=== PATIENT | female | born 1960 | race Caucasian/White ===

== ENCOUNTER 2021-08-15 19:45 | Emergency (ER) | payer OTHER ==
[2021-08-15 20:25] VITALS: BP 158/74; PULSE 88; RESP 17; TEMP 98.3
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
[2021-08-15 22:13] LABS: Basophils # (A) 0.1 k/uL (0-0.2); Basophils % (A) 1 %; Eosinophils # (A) 0.2 k/uL (0-0.7); Eosinophils % (A) 2 %; HCT 45.8 % (34.0-46.0); Lymphocytes # (A) 1.7 k/uL (1.0-4.8); Lymphocytes % (A) 19 %; MCH 29.4 pg (25.0-35.0); MCHC 32.9 g/dL (31.0-37.0); MCV 89.3 fL (80.0-100.0); Mean Platelet Volume 7.6; Monocytes # (A) 0.4 k/uL (0-1.0); Monocytes % (A) 4 %; Neutrophils # (A) 6.5 k/uL (1.3-7.7); Neutrophils % (A) 73 %; Platelet Count 341 k/uL (150-450); RBC 5.12 m/uL (3.80-5.40); RDW 13.2 % (11.5-15.5); WBC 8.9 k/uL (3.8-10.6)
[2021-08-15 22:22] LABS: ALT 36 U/L (4-34); AST 47 U/L (14-36); African American GFR (CKD) >90 (>60 ml/min/1.73 sqM); Albumin 4.2 g/dL (3.5-5.0); Alcohol <10 mg/dL; Alkaline Phosphatase 112 U/L (38-126); Anion Gap 10 mmol/L; Blood Urea Nitrogen 15 mg/dL (7-17); Calcium 9.6 mg/dL (8.4-10.2); Carbon Dioxide 20 mmol/L (22-30); Chloride 105 mmol/L (98-107); Glucose 96 mg/dL (74-99); Non-African American GFR(CKD) >90 (>60 ml/min/1.73 sqM); Potassium 4.6 mmol/L (3.5-5.1); Sodium 135 mmol/L (137-145); Total Bilirubin 1.3 mg/dL (0.2-1.3); Total Protein 6.8 g/dL (6.3-8.2)
== END 2021-08-16 02:20 | disposition home or self-care (01) ==
LOC: EC 19:45
DX: F43.20 Adjustment disorder, unspecified (principal); Z88.5 Allergy status to narcotic agent
CPT/HCPCS: 36415; 80053; 80320; 82075; 84443; 85025; 99284

== ENCOUNTER 2021-08-20 20:44 | Inpatient (IN) | payer MEDICAID, OTHER ==
--- NOTE | 2021-08-20 22:20 | ED ---
Psych HPI - General Chief Complaint: Psychiatric Symptoms Stated Complaint: Mental Health Time Seen by Provider: 08/20/21 21:56 Source: patient, police Mode of arrival: ambulatory - Related Data Home Medications Medication Instructions Recorded Confirmed No Known Home Medications 08/15/21 08/20/21 Allergies Allergy/AdvReac Type Severity Reaction Status Date / Time codeine Allergy Rash/Hives Verified 08/20/21 22:53 Review of Systems ROS Statement: Those systems with pertinent positive or pertinent negative responses have been documented in the HPI. ROS Other: All systems not noted in ROS Statement are negative. Past Medical History Past Medical History: Unable to Obtain History of Any Multi-Drug Resistant Organisms: Unobtainable Past Surgical History: Unable to Obtain Past Psychological History: Unable to Obtain Smoking Status: Unknown if ever smoked Past Alcohol Use History: Unable to Obtain Past Drug Use History: Unable to Obtain General Exam Limitations: altered mental status Course Vital Signs 08/20/21 21:47 Temperature 97.3 F L Pulse Rate 100 Respiratory 18 Rate Blood Pressure 125/79 O2 Sat by Pulse 95 Oximetry Medical Decision Making - Lab Data Lab Results 08/20/21 Range/Units 22:22 Urine Color Yellow Urine Appearance Clear (Clear) Urine pH 5.5 (5.0-8.0) Ur Specific [place] 1.020 (1.001-1.035) Urine Protein Negative (Negative) Urine Glucose (UA) Negative (Negative) Urine Ketones Negative (Negative) Urine Blood Trace H (Negative) Urine Nitrite Negative (Negative) Urine Bilirubin Negative (Negative) Urine Urobilinogen <2.0 (<2.0) mg/dL Ur Leukocyte Esterase Trace H (Negative) Urine RBC 2 (0-5) /hpf Urine WBC 3 (0-5) /hpf Ur Squamous Epith Cells 4 (0-4) /hpf Hyaline Casts 1 (0-2) /lpf Urine Mucus Occasional H (None) /hpf Urine Opiates Screen Not Detected (NotDetected) Ur Oxycodone Screen Not Detected (NotDetected) Urine Methadone Screen Not Detected (NotDetected) Ur Propoxyphene Screen Not Detected (NotDetected) Ur Barbiturates Screen Not Detected (NotDetected) U Tricyclic Antidepress Not Detected (NotDetected) Ur Phencyclidine Scrn Not Detected (NotDetected) Ur Amphetamines Screen Not Detected (NotDetected) U Methamphetamines Scrn Not Detected (NotDetected) U Benzodiazepines Scrn Not Detected (NotDetected) Urine Cocaine Screen Not Detected (NotDetected) U Marijuana (THC) Screen Detected H (NotDetected) Disposition Clinical Impression: Acute anxiety, Acute psychosis, Adjustment reaction Disposition: TRANSFER TO PSYCH HOSP/UNIT Condition: Fair Is patient prescribed a controlled substance at d/c from ED?: No Referrals: None,Stated [Primary Care Provider] - 1-2 days
[2021-08-20 22:29] LABS: Appearance,Urine Clear (Clear); Bilirubin,Urine Negative (Negative); Blood,Urine Trace (Negative); Color,Urine Yellow; Glucose,Urine (UA) Negative (Negative); Hyaline Casts,Urine 1 /lpf (0-2); Ketones,Urine Negative (Negative); Leukocyte Esterase,Urine Trace (Negative); Mucus,Urine Occasional /hpf; Nitrite,Urine Negative (Negative); PH, Urine 5.5 (5.0-8.0); Protein,Urine Negative (Negative); RBC,Urine 2 /hpf (0-5); Squamous Epithelial Cell,Urine 4 /hpf (0-4); Urobilinogen,Urine <2.0 mg/dL (<2.0); WBC,Urine 3 /hpf (0-5)
[2021-08-20 22:44] LABS: Amphetamine Screen,Urine Not Detected (NotDetected); Barbiturate Screen,Urine Not Detected (NotDetected); Benzodiazepines Screen,Urine Not Detected (NotDetected); Cocaine Screen,Urine Not Detected (NotDetected); Methadone Screen, Urine Not Detected (NotDetected); Opiate Screen,Urine Not Detected (NotDetected); Oxycodone Screen, Urine Not Detected (NotDetected); Phencyclidine Screen,Urine Not Detected (NotDetected); Tricyclic Antidepressant,Urine Not Detected (NotDetected); Urn Cannabinoid Scrn Detected (NotDetected)
[2021-08-21] MEDS ORDERED: MAGNESIUM HYDROXIDE 2,400 MG/10 ML CUP PO PRN (01:58)
[2021-08-21] MEDS ORDERED: MAG HYDROX/AL HYDROX/SIMETH 30 ML CUP PO PRN (01:58)
[2021-08-21] MEDS ORDERED: LORazepam 2 MG/ML INJ IM PRN (02:01)
[2021-08-21] MEDS ORDERED: HALOPERIDOL LACTATE 5 MG/ML 1 ML VIAL IM PRN (02:02)
[2021-08-21] MEDS: NICOTINE 14MG/24HR PATCH TRANSDERM SCH (08:45)
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
[2021-08-21] MEDS: risperiDONE 1 MG TAB PO SCH (21:30)
--- NOTE | 2021-08-21 22:25 | P.PN ---
Progress Note - Text Progress Note Date: 08/21/21 Unable to evaluate as patient was acutely psychotic.
[2021-08-22] MEDS: ACETAMINOPHEN TAB 325 MG TAB PO PRN ×2 (03:31→18:58)
[2021-08-22] MEDS: risperiDONE 1 MG TAB PO SCH (08:11)
[2021-08-22] MEDS: NICOTINE 14MG/24HR PATCH TRANSDERM SCH (08:11)
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
[2021-08-22 10:50] LABS: Basophils % (A) 0 %; Eosinophils # (A) 0.2 k/uL (0-0.7); Eosinophils % (A) 3 %; HCT 51.1 % (34.0-46.0); HGB 16.5 gm/dL (11.4-16.0); Lymphocytes # (A) 1.4 k/uL (1.0-4.8); Lymphocytes % (A) 19 %; MCH 29.5 pg (25.0-35.0); MCHC 32.4 g/dL (31.0-37.0); Mean Platelet Volume 7.7; Monocytes # (A) 0.4 k/uL (0-1.0); Monocytes % (A) 5 %; Neutrophils # (A) 5.6 k/uL (1.3-7.7); Neutrophils % (A) 72 %; Platelet Count 319 k/uL (150-450); RBC 5.62 m/uL (3.80-5.40); WBC 7.8 k/uL (3.8-10.6)
[2021-08-22 11:29] LABS: Albumin 3.9 g/dL (3.5-5.0); Calcium 9.9 mg/dL (8.4-10.2); Potassium 5.2 mmol/L (3.5-5.1); Total Bilirubin 0.9 mg/dL (0.2-1.3); Total Protein 6.7 g/dL (6.3-8.2)
[2021-08-22] MEDS: risperiDONE 2 MG TAB PO SCH (20:32)
--- NOTE | 2021-08-22 21:28 | P.CONS ---
History of Present Illness - Reason for Consult Consult date: 08/22/21 - History of Present Illness The patient was seen with the mental health unit RN Chandni. I was never alone with the patient. The patient is a 61-year-old female with no known PMH who presented to the emergency room due to strange behavior. Patient was admitted to the mental health unit where she was seen and evaluated. The patient displayed paranoid and tangential thoughts and behavior. She reported no chronic medical conditions and that she does not take any medications at home. She reports smoking tobacco occasionally as well as occasional marijuana use but denied any additional illicit substance use. She denied any physical complaints. She denied chest discomfort or shortness breath, fever, chills, cough, nausea, vomiting, abdominal pain, diarrhea. Laboratory evaluation was remarkable for hyperkalemia with potassium 5.2 urine toxicology positive for marijuana. Review of systems: Pertinent positives and negatives as discussed in HPI, a complete review of systems was performed and all other systems are negative. Physical examination: General: non toxic, no distress, appears at stated age, normal weight Derm: no unusual rashes/lesions no unusual ecchymoses, warm, dry Head: atraumatic, normocephalic, symmetric Eyes: EOMI, no lid lag, anicteric sclera, pupils equal round reactive to light ENT: Nose and ears atraumatic, no thrush, no pharyngeal erythema Neck: No thyromegaly, no cervical lymphadenopathy, trachea midline, supple Mouth: no lip lesion, mucus membranes moist Cardiovascular: S1S2 reg, no murmur, positive posterior tibial pulse bilateral, no edema, capillary refill less than 2 seconds Lungs: CTA bilateral, no rhonchi, no rales , no accessory muscle use Abdominal: soft, nontender to palpation, no guarding, no appreciable organomegaly, normal bowel sounds Ext: no gross muscle atrophy, muscle strength 5 out of 5 in all 4 extremities grossly, no contractures, Neuro: CN II-XI grossly intact, light touch intact all 4 extremities, finger to nose within normal limits, Psych: Alert, oriented, paranoid, tangential thought process Assessment/plan Marijuana, tobacco abuse -Advised on importance of cessation Hyperkalemia -Obtain repeat BMP in a.m. Psychosis -As per psychiatry Thank you for allowing us to participate in the care of this patient. We will follow peripherally. Do not hesitate to contact us with questions. Someone can be reached from the [facility] hospitalist group at all hours of the day at [phone]. Past Medical History Past Medical History: Unable to Obtain History of Any Multi-Drug Resistant Organisms: Unobtainable Past Surgical History: Unable to Obtain Past Psychological History: Unable to Obtain Smoking Status: Unknown if ever smoked Past Alcohol Use History: Unable to Obtain Past Drug Use History: Unable to Obtain Medications and Allergies Home Medications Medication Instructions Recorded Confirmed Type No Known Home Medications 08/15/21 08/20/21 History Allergies Allergy/AdvReac Type Severity Reaction Status Date / Time codeine Allergy Rash/Hives Verified 08/20/21 22:53 Physical Exam Vitals: Vital Signs Temp Pulse Resp BP 08/22/21 03:33 97 F L 121 H 18 129/72 Results CBC & Chem 7: 08/22/21 10:09 08/22/21 10:09 Labs: Abnormal Lab Results - Last 24 Hours (Table) 08/22/21 08/22/21 Range/Units 10:09 10:09 RBC 5.62 H (3.80-5.40) m/uL Hgb 16.5 H (11.4-16.0) gm/dL Hct 51.1 H (34.0-46.0) % Sodium 135 L (137-145) mmol/L Potassium 5.2 H (3.5-5.1) mmol/L BUN 21 H (7-17) mg/dL AST 38 H (14-36) U/L Alkaline Phosphatase 127 H (38-126) U/L
[2021-08-23] MEDS: LORazepam 1 MG TAB PO PRN (02:08)
[2021-08-23 07:37] LABS: Anion Gap 6 mmol/L; Carbon Dioxide 27 mmol/L (22-30); Chloride 102 mmol/L (98-107); Glucose 94 mg/dL (74-99); Potassium 4.2 mmol/L (3.5-5.1); Sodium 135 mmol/L (137-145)
[2021-08-23 07:38] LABS: African American GFR (CKD) >90 (>60 ml/min/1.73 sqM); Blood Urea Nitrogen 17 mg/dL (7-17); Calcium 9.4 mg/dL (8.4-10.2); Non-African American GFR(CKD) 86 (>60 ml/min/1.73 sqM)
[2021-08-23] MEDS: NICOTINE 14MG/24HR PATCH TRANSDERM SCH (09:48)
[2021-08-23] MEDS: risperiDONE 2 MG TAB PO SCH (09:48)
--- NOTE | 2021-08-23 12:01 | P.PN ---
Progress Note - Text Progress Note Date: 08/23/21 Interval History: Patient was seen resting in bed and was directable and agreeable to speak with the technical proposal writer in her room. The patient was that she is feeling better today. She does state that she is feeling tired to medications but has been adherent to them. She displays improved insight today, acknowledging that she was acting bizarrely prior to this admission. She has been noted to continue to make occasional bizarre and paranoid statements but overall has had an improvement. She is currently not reporting any suicidal or homicidal ideation, intention, and/or plan. She is not reporting any auditory or visualizations. She continues to be fixated on the well-being of her cats. She also has been noted to endorse fear and distrust of staff and other peers. She is otherwise adherent with her medications. She did attend group last night. The patient did defer mental health court. Mental Status Exam: General Appearance: Patient appears to be stated age is alert, directable, and cooperative. Behavior: Patient is calmly seated without any agitated behavior. Improved eye contact today. Speech: Patient's speech is fluent and nonpressured. Spontaneous, normal rate, tone, and volume. Mood/Affect: Mood is "I'm feeling better." Affect is constricted in range but otherwise euthymic. Suicidality/Homicidality: Patient denies any suicidal or homicidal ideation, intention, and/or plan. Perceptions: Patient denies any visual hallucinations and denies any auditory hallucinations Though content/process: The patient makes occasional paranoid and bizarre statements but is less forthcoming with any bizarre delusions. Thought process appears to be linear and logical in short conversation today. Memory and concentration: AOX3, grossly intact for the purposes of this session Judgment and insight: Improving mildly Vital Signs Temp 97 F L 08/22/21 03:33 Pulse 121 H 08/22/21 03:33 Resp 18 08/22/21 03:33 BP 129/72 08/22/21 03:33 Pulse Ox 91 L 08/21/21 02:20 Laboratory Results - Last 24 Hours 08/22/21 08/23/21 10:09 07:11 Sodium 135 L Potassium 4.2 Chloride 102 Carbon Dioxide 27 Anion Gap 6 BUN 17 Creatinine 0.75 Est GFR (CKD-EPI)AfAm >90 Est GFR (CKD-EPI)NonAf [address] Glu mg/dL 108 Hemoglobin A1c 5.4 Calcium 9.4 Assessment Acute psychosis Plan: -Patient continues to meet criteria for inpatient psychiatric admission for symptom stabilization and safety. The patient has been petitioned and certified. The patient deferred mental health court. -Medications: Decrease morning Risperdal to 1 mg daily and increased nightly Risperdal to 3 mg at bedtime for psychosis. This is to decrease daytime sedation. Consider further titration of her antipsychotic medication in response to target symptoms. -When necessary Ativan and Haldol for agitation/aggression. -NRT - nicotine patch -SW on board for discharge planning. Encouraged the patient to participate in milieu.
[2021-08-23] MEDS: risperiDONE 1 MG TAB PO SCH (20:51)
[2021-08-24] MEDS: LORazepam 1 MG TAB PO PRN (04:38)
[2021-08-24] MEDS: ACETAMINOPHEN TAB 325 MG TAB PO PRN (09:25)
[2021-08-24] MEDS: risperiDONE 1 MG TAB PO SCH ×2 (09:25→20:14)
[2021-08-24] MEDS: NICOTINE 14MG/24HR PATCH TRANSDERM SCH (09:27)
--- NOTE | 2021-08-24 15:35 | PN ---
PROGRESS NOTE DATE OF SERVICE: 08/24/2021. CHIEF COMPLAINT: The patient was having delusions, paranoia and disorganized thinking. INTERVAL HISTORY: Patient has been doing fair. She had a quiet day yesterday. She comes out on the unit. She will interact a little with others. She tends to have a quiet manner. She chose not to attend groups yesterday. She slept fair last night. Today she has been up. It is noted that she made the comment today when she came in for the interview that she wanted to make sure she made groups today. She has attended two groups today and generally has been appropriate in groups. She did make the comment in one of the groups that she did not know why she was here and asserted that she has not been stealing cars, which she believes was reported as behavior she had coming into the hospital. The patient stated that she does feel she is doing a little better, though at the same time she did not seem to have a clear understanding of some of what led to her coming into the hospital. As noted by Dr. Stone yesterday, she did make the comment that she was aware of having acted bizarrely prior to admission. When I talked to her about this, she initially seemed to say that she was not having any unusual behaviors, though then after reading Dr. King's note, she seemed to suggest that perhaps some disordered behavior was part of what she was going through. She appears to be tolerating her psychotropic medication and did not seem to have any sedation issues today after receiving her 1 mg morning dose of Risperdal. MENTAL STATUS EXAM: Patient sat without restlessness. She was somewhat slowed in psychomotor activity. She answered questions with brief responses. She did not say a lot. Her thoughts were clear, though at times she gave vague responses. Her affect was blunted, her mood reserved. She seemed somewhat worried and distressed. She made some indications of having some delusional thinking though tended to minimize any issues with that. She denied any thoughts of harm. Cognition was clear. ASSESSMENT: I will continue the current diagnosis and treatment plan. We will continue to make efforts to engage the patient in individual and group therapeutic activities. I will continue Risperdal the same, namely 1 mg in the morning, 3 mg at bedtime. I reviewed medication issues with the patient. I discussed the indications, potential side effects and concerns relating to metabolics and movement disorder issues. We will focus on stabilization and discharge planning. MMODL / IJN: [id number] /
[2021-08-25] MEDS: LORazepam 1 MG TAB PO PRN (03:36)
[2021-08-25 03:41] VITALS: TEMP 97.2
[2021-08-25] MEDS: NICOTINE 14MG/24HR PATCH TRANSDERM SCH (09:22)
[2021-08-25] MEDS: risperiDONE 1 MG TAB PO SCH ×2 (09:23→20:19)
--- NOTE | 2021-08-25 16:59 | PN ---
PROGRESS NOTE DATE OF SERVICE: 08/25/2021 CHIEF COMPLAINT: The patient was having delusions, paranoia and disorganized thinking. INTERVAL HISTORY: Patient has been doing fair. She had a quiet day yesterday. She comes out on the unit. She will wander about. She interacts some with others. She did attend groups yesterday. She tends to have a quiet manner in groups. She said she slept well last night. Today she has been up and overall doing about the same. She seems to present in a reserved manner. It was noteworthy when I talked with her that she made several comments about when she goes home she would not do anything bad to get herself in trouble. She would not do anything to harm herself or anyone else. It seemed to be a way for her to suggest that she was ready to be discharged and feels that she could go home and be safe. She continues to have only limited insight in regard to factors leading to her coming into the hospital. She tolerates her psychotropic medications. MENTAL STATUS: Patient sat without restlessness. She has slowed psychomotor activity. She gave fair eye contact at best. She answered questions with brief responses. She made a few spontaneous comments as noted above. She tended to be repetitive in this regard. Her affect was constricted, her mood reserved. She did not seem to be significantly distressed. There was a question whether she continues to have some delusional thinking. She voiced no thoughts of harm. Cognition was clear. ASSESSMENT: I will continue the current diagnosis and treatment plan. I will continue psychotropic medications the same. Patient appears to be making some progress. We will focus on stabilization and discharge planning. JESS / FREDIS: [id number] /
[2021-08-26] MEDS: risperiDONE 1 MG TAB PO SCH (08:32)
[2021-08-26] MEDS: NICOTINE 14MG/24HR PATCH TRANSDERM SCH (08:33)
--- NOTE | 2021-08-26 12:55 | P.PN ---
Progress Note - Text Progress Note Date: 08/26/21 Interval History: Patient was seen attending group and was agreeable to speak with press writer in the office. The patient is alert and oriented in all spheres today. She is currently not endorsing any significant issues regarding her mood. She reports no suicidal or homicidal ideation, intention, and/or plan. She does acknowledge that she has been acting differently and out of character prior to this admission. The patient denies any paranoia or other delusions at this time. She has been adherent with her medications but reports that she has been experiencing worsening nightmares after her nighttime dose of Risperdal. She also reports that she has some difficulty with restlessness at night and difficulty sleeping. She is open to trying trazodone. The patient is otherwise reporting significant improvement in regards to her target psychotic symptoms. She does express concern for the well-being of her cats. The patient does report that she has been engaging in frequent cannabis use prior to this admission. Mental Status Exam: General Appearance: Patient appears to be stated age is alert, directable, and cooperative. Behavior: Patient is calmly seated without any agitated behavior. Good eye contact. Speech: Patient's speech is fluent and nonpressured. Spontaneous, normal rate, tone, and volume. Mood/Affect: Mood is "I'm worried about my cats." Affect is with appropriate range and otherwise euthymic. Suicidality/Homicidality: Patient denies any suicidal or homicidal ideation, intention, and/or plan. Perceptions: Patient denies any visual hallucinations and denies any auditory hallucinations Though content/process: No delusional thought content is endorsing today. Thought process is to be linear and logical in short conversation. Memory and concentration: AOX3, grossly intact for the purposes of this session Judgment and insight: Improving mildly Assessment Acute psychosis - suspect secondary to cannabis use Cannabis use disorder Plan: -Patient continues to meet criteria for inpatient psychiatric admission for symptom stabilization and safety. The patient has been petitioned and certified. The patient deferred mental health court. -Medications: Risperdal 1 mg by mouth every morning, and 2 mg by mouth daily at bedtime. Nighttime dose decreased patient expresses has been giving her nightmares. She does report some restlessness and sleep and therefore trazodone 50 mg at bedtime scheduled. -When necessary Ativan and Haldol for agitation/aggression. -NRT - nicotine patch -SW on board for discharge planning. Encouraged the patient to participate in milieu.
[2021-08-26] MEDS: ACETAMINOPHEN TAB 325 MG TAB PO PRN (15:27)
[2021-08-26] MEDS ORDERED: risperiDONE 1 MG TAB PO SCH (21:00)
[2021-08-26] MEDS ORDERED: traZODone HCL 50 MG TAB PO SCH (21:00)
[2021-08-27 06:38] VITALS: BP 101/57; PULSE 110; RESP 18
[2021-08-27] MEDS: risperiDONE 1 MG TAB PO SCH (08:28)
[2021-08-27] MEDS: NICOTINE 14MG/24HR PATCH TRANSDERM SCH (08:29)
--- NOTE | 2021-08-27 11:42 | P.DS ---
Providers Date of admission: 08/21/21 01:54 Expected date of discharge: 08/27/21 Attending physician: Mayank King MD Consults: 08/21/21 01:58 Consult Physician Routine Consulting Provider: Eliseo Pena Consult Reason/Comments: H&P Do you want consulting provider notified?: Yes Primary care physician: Stated None - Discharge Diagnosis(es) (1) Acute psychosis Current Visit: Yes Status: Acute Priority: High (2) Cannabis use disorder, moderate, dependence Current Visit: Yes Status: Chronic Priority: Medium (3) Nicotine dependence Current Visit: Yes Status: Chronic Priority: Medium Hospital Course: Admission HPI: Patient is a single, unemployed, 61-year-old female who was admitted for psychosis. Patient presented to the hospital on 08/20/2021, brought into the emergency department by police on a pickup order. The patient came under petitioned by the patient's boyfriend Simeon. As per petition, "she doesn't want to clean, breaking into people's cars, signs in the window of the house saying 'I hate you', screaming in the middle of the night, hits me, kicks me, scratches me." As per APS report, when this petition was read out to the patient, she slammed the bed in the emergency department with her hands and became very upset. The patient was also noted to be very paranoid stating "I don't anyone to hear me, I don't trust anyone." She appeared to be responding to internal stimuli. The patient was subsequently admitted to the psychiatric unit. On evaluation the psychiatric unit, the patient is presenting as grossly disorganized. She is a very limited historian at this time. She is unable to provide events leading up to this hospitalization and asked bizarrely throughout the interview. When asked if she was expressing any auditory or visual hallucinations, the patient overtly denies any. She does not report any paranoia or other delusions but oddly looks at her hands and states "I think I am here because of veins." The patient is unable to expand on this idea. She is currently not reporting any branham icidal or homicidal ideation, intention, and/or plan. The patient is only fixated on the well-being of her cats. Patient states that she owns 4 cats she wants to know where they are. She is otherwise unable to provide any significant history to this provider. The patient does not believe she has any significant mental illness at this time. There is no reported psychiatric history for this patient. The patient does not recall ever being prescribed any psychiatric medications. She reports no prior psychiatric hospitalizations. She denies any outpatient psychiatric follow-up. She reports no suicide attempts in the past. Hospital course: Upon admission to the unit patient was initially endorsing significant symptoms of psychosis, including paranoia, disorganization, and agitation. The patient was started on Risperdal for management of her psychosis. The patient was petitioned and certified and the second clinical certificate was filled out. The patient was compliant with the medications although was unable to confirm that she would take them when she was initially seen. Over the course of hospitalization, as Risperdal was increased, the patient displayed a significant improvement in regards her target symptoms of psychosis. The patient showed significant improvement and became more alert and oriented to person, place, and time. She also developed further insight and judgment. The patient deferred mental health court. The patient had a significant decrease in her paranoia and delusions and became more organized. Eventually, the patient endorsed side effects of the Risperdal including nightmares and difficulty with sleep. Risperdal was therefore decreased and trazodone was added instead. The patient displayed significant improvement on this regimen. On the day of discharge, the patient is not reporting any suicidal or homicidal ideation, and/or plan. She is not reporting any auditory or visual hallucinations. She denies any problems other weapons. She denies any paranoia or other delusions. Patient is alert and oriented in all spheres. The patient was counseled at length on her substance use, in particular her marijuana use as that likely was a precipitating factor that led to this admission. The patient agrees that she needs to stop marijuana use but maintains that she will continue her tobacco use. Patient was counseled on her medications and the need for regular adherence with her medications as well as with her outpatient appointments. Prior to discharge, family meeting will be arranged by social sciences professor to answer questions and ensure safety. Mental status exam: General Appearance: Patient appears to be stated age is alert, pleasant, and cooperative. Patient is in no acute distress and has fair hygiene and grooming. Behavior: Patient is calmly seated without any agitated behavior. Eye contact is appropriate. Psychomotor activity is normal. Speech: Patient's speech is spontaneous, fluent, and nonpressured. Mood/Affect: Patient reports their mood is "feeling pretty good", affect is congruent and euthymic. Suicidality/Homicidality: Patient denies having any suicidal or homicidal ideation intent or plan. Perceptions: Patient denies any auditory or visual hallucinations. Though content/process: There is no evidence of any delusional thought content and thought process is linear and goal-directed. Patient is future oriented. Memory and concentration: AOX3, grossly intact for the purposes of this session. Can spell "WORLD" backwards correctly. Judgment and insight: Improved Vital Signs Temp 97.2 F L 08/27/21 06:37 Pulse 110 H 08/27/21 06:37 Resp 18 08/27/21 06:37 BP 101/57 08/27/21 06:37 Pulse Ox 91 L 08/21/21 02:20 Impression: Acute psychosis, likely secondary to cannabis use Cannabis use disorder Nicotine dependence Plan: -Continue with discharge today as patient has improved and stabilized psychiatrically and is not currently an imminent threat to herself and/or others. -Continue medications: Risperdal 1 mg by mouth twice a day for psychosis Trazodone 50 mg by mouth at bedtime for insomnia -Patient was counseled on the need for medication compliance and appropriate follow-up at mental health and also primary care for medical issues. Patient verbalized understanding and agreed. -Social work to arrange for and conduct family meeting to ensure safety upon discharge and answer any questions/concerns. Social work also to arrange for patients follow up appointments with the [facility] for [facility] care along with follow up with primary care provider. -Patient counseled on abstaining from recreational drugs and marijuana and alcohol. Was informed/educated on the adverse effects on their physical and mental health. Patient verbally agreed and understood. Patient was offered substance abuse treatment however declined at this time. -Patient was instructed to return to the hospital or seek immediate medical care if their psychiatric or medical symptoms do worsen or reoccur. -Psychoeducation and supportive therapy provided to patient. Risks and benefits of pharmacological treatment versus the risks and benefits of nontreatment weight and discussed. Informed consent discussion held. Common side effects of psychotropics discussed such as, but not limited to headache, GI disturbance, sexual dysfunction, movement disorders, sedation, and orthostatic hypotension. Life threatening and blackbox warnings of prescribed medications also discussed. Potential risks of operating a vehicle or heavy machinery discussed with patient at length. Advised on importance of compliance and a reliable and responsible manner. Patient advised to review FDA consumer labeling of all medications prior to taking. Patient verbalized understanding of potential risks, and agrees with current treatment plan. Patient advised to medically contact physician/emergency personnel if any acute changes in condition occur. Allergies Allergy/AdvReac Type Severity Reaction Status Date / Time codeine Allergy Rash/Hives Verified 08/25/21 14:28 Laboratory Results WBC 7.8 k/uL (3.8-10.6) 08/22/21 10:09 RBC 5.62 m/uL (3.80-5.40) H 08/22/21 10:09 Hgb 16.5 gm/dL (11.4-16.0) H 08/22/21 10:09 Hct 51.1 % (34.0-46.0) H 08/22/21 10:09 MCV 91.0 fL (80.0-100.0) 08/22/21 10:09 MCH 29.5 pg (25.0-35.0) 08/22/21 10:09 MCHC 32.4 g/dL (31.0-37.0) 08/22/21 10:09 RDW 13.0 % (11.5-15.5) 08/22/21 10:09 Plt Count 319 k/uL (150-450) 08/22/21 10:09 MPV 7.7 08/22/21 10:09 Neutrophils % 72 % 08/22/21 10:09 Lymphocytes % 19 % 08/22/21 10:09 Monocytes % 5 % 08/22/21 10:09 Eosinophils % 3 % 08/22/21 10:09 Basophils % 0 % 08/22/21 10:09 Neutrophils # 5.6 k/uL (1.3-7.7) 08/22/21 10:09 Lymphocytes # 1.4 k/uL (1.0-4.8) 08/22/21 10:09 Monocytes # 0.4 k/uL (0-1.0) 08/22/21 10:09 Eosinophils # 0.2 k/uL (0-0.7) 08/22/21 10:09 Basophils # 0.0 k/uL (0-0.2) 08/22/21 10:09 Sodium 135 mmol/L (137-145) L 08/23/21 07:11 Potassium 4.2 mmol/L (3.5-5.1) 08/23/21 07:11 Chloride 102 mmol/L (98-107) 08/23/21 07:11 Carbon Dioxide 27 mmol/L (22-30) 08/23/21 07:11 Anion Gap 6 mmol/L 08/23/21 07:11 BUN 17 mg/dL (7-17) 08/23/21 07:11 Creatinine 0.75 mg/dL (0.52-1.04) 08/23/21 07:11 Est GFR (CKD-EPI)AfAm >90 (>60 ml/min/1.73 sqM) 08/23/21 07:11 Est GFR (CKD-EPI)NonAf 86 (>60 ml/min/1.73 sqM) 08/23/21 07:11 Glucose 94 mg/dL (74-99) 08/23/21 07:[address] Glu mg/dL 108 08/22/21 10:09 Hemoglobin A1c 5.4 % (4.0-6.0) 08/22/21 10:09 Calcium 9.4 mg/dL (8.4-10.2) 08/23/21 07:11 Total Bilirubin 0.9 mg/dL (0.2-1.3) 08/22/21 10:09 AST 38 U/L (14-36) H 08/22/21 10:09 ALT 32 U/L (4-34) 08/22/21 10:09 Alkaline Phosphatase 127 U/L (38-126) H 08/22/21 10:09 Total Protein 6.7 g/dL (6.3-8.2) 08/22/21 10:09 Albumin 3.9 g/dL (3.5-5.0) 08/22/21 10:09 TSH 1.440 mIU/L (0.465-4.680) 08/22/21 10:09 Urine Color Yellow 08/20/21 22:22 Urine Appearance Clear (Clear) 08/20/21 22:22 Urine pH 5.5 (5.0-8.0) 08/20/21 22:22 Ur Specific [place] 1.020 (1.001-1.035) 08/20/21 22:22 Urine Protein Negative (Negative) 08/20/21 22:22 Urine Glucose (UA) Negative (Negative) 08/20/21 22:22 Urine Ketones Negative (Negative) 08/20/21 22:22 Urine Blood Trace (Negative) H 08/20/21 22:22 Urine Nitrite Negative (Negative) 08/20/21 22: Urine Bilirubin Negative (Negative) 08/20/21 22: Urine Urobilinogen <2.0 mg/dL (<2.0) 08/20/21 22:22 Ur Leukocyte Esterase Trace (Negative) H 08/20/21 22:22 Urine RBC 2 /hpf (0-5) 08/20/21 22:22 Urine WBC 3 /hpf (0-5) 08/20/21 22:22 Ur Squamous Epith Cells 4 /hpf (0-4) 08/20/21 22: Hyaline Casts 1 /lpf (0-2) 08/20/21 22:22 Urine Mucus Occasional /hpf (None) H 08/20/21 22:22 Urine Opiates Screen Not Detected (NotDetected) 08/20/21 22:22 Ur Oxycodone Screen Not Detected (NotDetected) 08/20/21 22:22 Urine Methadone Screen Not Detected (NotDetected) 08/20/21 22:22 Ur Propoxyphene Screen Not Detected (NotDetected) 08/20/21 22:22 Ur Barbiturates Screen Not Detected (NotDetected) 08/20/21 22:22 U Tricyclic Antidepress Not Detected (NotDetected) 08/20/21 22:22 Ur Phencyclidine Scrn Not Detected (NotDetected) 08/20/21 22:22 Ur Amphetamines Screen Not Detected (NotDetected) 08/20/21 22:22 U Methamphetamines Scrn Not Detected (NotDetected) 08/20/21 22:22 U Benzodiazepines Scrn Not Detected (NotDetected) 08/20/21 22:22 Urine Cocaine Screen Not Detected (NotDetected) 08/20/21 22:22 U Marijuana (THC) Screen Detected (NotDetected) H 08/20/21 22:22 Coronavirus (PCR) Not Detected (Not Detectd) 08/21/21 00:56 Patient Condition at Discharge: Stable Plan - Discharge Summary Discharge Rx Participant: No New Discharge Prescriptions: New traZODone HCL [Desyrel] 50 mg PO HS 30 Days tab risperiDONE [RisperDAL] 2 mg PO HS 30 Days tab risperiDONE [RisperDAL] 1 mg PO DAILY 30 Days tab Discharge Medication List risperiDONE [RisperDAL] 1 mg PO DAILY 30 Days tab 08/27/21 [Rx] risperiDONE [RisperDAL] 2 mg PO HS 30 Days tab 08/27/21 [Rx] traZODone HCL [Desyrel] 50 mg PO HS 30 Days tab 08/27/21 [Rx] Follow up Appointment(s)/Referral(s): [facility] [NON-STAFF] - 1 Week Patient Instructions/Handouts: Psychotic Disorder (DC) Activity/Diet/Wound Care/Special Instructions: Activity and diet as tolerated. Avoid the use of street drugs and alcohol. Take all medications as prescribed. When you are in need of refills on your medications please contact your medical provider and/or outpatient psychiatrist to have this done. Please go to scheduled outpatient appointment for aftercare treatment. If symptoms return or become worse, call the crisis line at and/or go to the nearest emergency room for evaluation. Discharge Disposition: HOME SELF-CARE
== END 2021-08-27 14:12 | disposition home or self-care (01) | DRG 885 ==
LOC: EC 20:44 → 3MHU 08-21 01:54
PROVIDERS: ADMIT Psychiatry & Neurology Psychiatry; ATTEND Psychiatry & Neurology Psychiatry
DX: F23 Brief psychotic disorder (principal); F12.959 Cannabis use, unspecified with psychotic disorder, unspecified; E87.5 Hyperkalemia; F17.200 Nicotine dependence, unspecified, uncomplicated; G47.00 Insomnia, unspecified; Z20.822 Contact with and (suspected) exposure to COVID-19; F43.22 Adjustment disorder with anxiety
CPT/HCPCS: 80048; 80053; 80306; 81001; 82075; 83036; 84443; 85025; 87635

== ENCOUNTER 2022-01-28 16:06 | Inpatient (IN) | payer MEDICAID, OTHER ==
--- NOTE | 2022-01-28 18:38 | ED ---
Psych HPI - General Chief Complaint: Psychiatric Symptoms Stated Complaint: Mental health eval Time Seen by Provider: 01/28/22 18:22 Source: patient, RN notes reviewed Mode of arrival: ambulatory - History of Present Illness Initial Comments: This is a pleasant 61-year-old female with a history of anxiety and depression. She presents today at the urging of her social service assistant. Apparently the patient is going to be homeless. Patient is complaining of increased depression and anxiety. Patient denies any current suicidality but states recently she has had some thoughts. No homicidality. Denies any hallucinations. No recent illness. Patient apparently was admitted in August for acute psychosis that time. Patient states up to about one month ago she was taking Abilify. Patient states she stopped taking this on her own accord. Vision taking no medications at this time. Denies alcohol or drug abuse. Does admit to cigarette smoking. No major surgeries. Past medical, social, family history are reviewed. No headache, no fever or chills, no changes in vision or hearing, no sore throat or difficulty with speech, no neck pain, no chest pain or shortness of breath, no abdominal pain, no nausea or vomiting, no changes in urination or bowel movements, no numbness or tingling, no extremity pain, no skin rashes or lesions. - Related Data Previous Rx's Medication Instructions Recorded risperiDONE [RisperDAL] 1 mg PO DAILY 30 Days tab 08/27/21 risperiDONE [RisperDAL] 2 mg PO HS 30 Days tab 08/27/21 traZODone HCL [Desyrel] 50 mg PO HS 30 Days tab 08/27/21 Allergies Allergy/AdvReac Type Severity Reaction Status Date / Time codeine Allergy Rash/Hives Verified 01/28/22 17:24 Review of Systems ROS Statement: Those systems with pertinent positive or pertinent negative responses have been documented in the HPI. ROS Other: All systems not noted in ROS Statement are negative. Past Medical History Past Medical History: Unable to Obtain History of Any Multi-Drug Resistant Organisms: Unobtainable Past Surgical History: Unable to Obtain Past Psychological History: Unable to Obtain Smoking Status: Unknown if ever smoked Past Alcohol Use History: Unable to Obtain Past Drug Use History: Unable to Obtain General Exam Limitations: no limitations General appearance: alert, in no apparent distress Head exam: Present: atraumatic, normocephalic, normal inspection Eye exam: Present: normal appearance, PERRL, EOMI. Absent: scleral icterus, conjunctival injection, periorbital swelling ENT exam: Present: normal exam, normal oropharynx, mucous membranes moist Neck exam: Present: normal inspection, full ROM. Absent: tenderness, meningismus, lymphadenopathy Respiratory exam: Present: normal lung sounds bilaterally. Absent: respiratory distress, wheezes, rales, rhonchi, stridor Cardiovascular Exam: Present: regular rate, normal rhythm, normal heart sounds. Absent: systolic murmur, diastolic murmur, rubs, gallop, clicks GI/Abdominal exam: Present: soft, normal bowel sounds. Absent: distended, tenderness, guarding, rebound, rigid Extremities exam: Present: normal inspection, full ROM, normal capillary refill. Absent: tenderness, pedal edema, joint swelling, calf tenderness Back exam: Present: normal inspection Neurological exam: Present: alert, oriented X3, CN II-XII intact Psychiatric exam: Present: depressed, anxious (Mildly anxious), flat affect. Absent: normal affect (Flat affect), normal mood (Low mood), agitated, manic, homicidal ideation, suicidal ideation Skin exam: Present: warm, dry, intact, normal color. Absent: rash Course Vital Signs 01/28/22 01/28/22 17:18 20:40 Temperature 97.3 F L 97.8 F Pulse Rate 93 90 Respiratory 18 14 Rate Blood Pressure 119/78 101/69 O2 Sat by Pulse 98 96 Oximetry - Reevaluation(s) Reevaluation #1: 01/28/222015 Medical record is reviewed Symptoms are unchanged--EPS notified Patient is informed of results and questions answered Patient in no distress - Consultations Consultation #1: C Medical Decision Making - Medical Decision Making Patient presents with depression and anxiety over what apparently is a prompt her current living situation. Patient's boyfriend moved out today. Patient is now going to be homeless. Sent by her social service assistant. No suicidal or homicidal ideation. The case was discussed in detail with ED attending physician. Presentation, findings, treatment plan discussed in detail. Patient still hypertensive at time of admission. However no respiratory distress. The case was discussed in detail with ED attending physician. Presentation, findings, treatment plan discussed in detail. - Lab Data Result diagrams: 01/28/22 19:00 01/28/22 19:00 Lab Results 01/28/22 01/28/22 01/28/22 Range/Units 18:53 19:00 19:00 WBC 9.3 (3.8-10.6) k/uL RBC 5.10 (3.80-5.40) m/uL Hgb 15.2 (11.4-16.0) gm/dL Hct 46.1 H (34.0-46.0) % MCV 90.3 (80.0-100.0) fL MCH 29.8 (25.0-35.0) pg MCHC 32.9 (31.0-37.0) g/dL RDW 13.6 (11.5-15.5) % Plt Count 459 H (150-450) k/uL MPV 6.8 Neutrophils % 70 % Lymphocytes % 22 % Monocytes % 5 % Eosinophils % 2 % Basophils % 1 % Neutrophils # 6.4 (1.3-7.7) k/uL Lymphocytes # 2.0 (1.0-4.8) k/uL Monocytes # 0.4 (0-1.0) k/uL Eosinophils # 0.1 (0-0.7) k/uL Basophils # 0.1 (0-0.2) k/uL Sodium 132 L (137-145) mmol/L Potassium 3.9 (3.5-5.1) mmol/L Chloride 98 (98-107) mmol/L Carbon Dioxide 26 (22-30) mmol/L Anion Gap 8 mmol/L BUN 19 H (7-17) mg/dL Creatinine 0.65 (0.52-1.04) mg/dL Est GFR (CKD-EPI)AfAm >90 (>60 ml/min/1.73 sqM) Est GFR (CKD-EPI)NonAf >90 (>60 ml/min/1.73 sqM) Glucose 104 H (74-99) mg/dL Calcium 9.5 (8.4-10.2) mg/dL Total Bilirubin 1.5 H (0.2-1.3) mg/dL AST 37 H (14-36) U/L ALT 22 (4-34) U/L Alkaline Phosphatase 107 (38-126) U/L Ammonia (<30) umol/L Total Protein 6.9 (6.3-8.2) g/dL Albumin 4.1 (3.5-5.0) g/dL TSH 1.760 (0.465-4.680) mIU/L Urine Color Yellow Urine Appearance Clear (Clear) Urine pH 6.0 (5.0-8.0) Ur Specific [place] 1.017 (1.001-1.035) Urine Protein Negative (Negative) Urine Glucose (UA) Negative (Negative) Urine Ketones Negative (Negative) Urine Blood Negative (Negative) Urine Nitrite Negative (Negative) Urine Bilirubin Negative (Negative) Urine Urobilinogen <2.0 (<2.0) mg/dL Ur Leukocyte Esterase Trace H (Negative) Urine RBC 2 (0-5) /hpf Urine WBC 2 (0-5) /hpf Ur Squamous Epith Cells 2 (0-4) /hpf Urine Bacteria Rare H (None) /hpf Urine Mucus Rare H (None) /hpf Salicylates <1.0 mg/dL Urine Opiates Screen Not Detected (NotDetected) Ur Oxycodone Screen Not Detected (NotDetected) Urine Methadone Screen Not Detected (NotDetected) Ur Propoxyphene Screen Not Detected (NotDetected) Acetaminophen <10.0 ug/mL Ur Barbiturates Screen Not Detected (NotDetected) U Tricyclic Antidepress Not Detected (NotDetected) Ur Phencyclidine Scrn Not Detected (NotDetected) Ur Amphetamines Screen Not Detected (NotDetected) U Methamphetamines Scrn Not Detected (NotDetected) U Benzodiazepines Scrn Not Detected (NotDetected) Urine Cocaine Screen Not Detected (NotDetected) U Marijuana (THC) Screen Not Detected (NotDetected) Serum Alcohol <10 mg/dL 01/28/22 Range/Units 19:00 WBC (3.8-10.6) k/uL RBC (3.80-5.40) m/uL Hgb (11.4-16.0) gm/dL Hct (34.0-46.0) % MCV (80.0-100.0) fL MCH (25.0-35.0) pg MCHC (31.0-37.0) g/dL RDW (11.5-15.5) % Plt Count (150-450) k/uL MPV Neutrophils % % Lymphocytes % % Monocytes % % Eosinophils % % Basophils % % Neutrophils # (1.3-7.7) k/uL Lymphocytes # (1.0-4.8) k/uL Monocytes # (0-1.0) k/uL Eosinophils # (0-0.7) k/uL Basophils # (0-0.2) k/uL Sodium (137-145) mmol/L Potassium (3.5-5.1) mmol/L Chloride (98-107) mmol/L Carbon Dioxide (22-30) mmol/L Anion Gap mmol/L BUN (7-17) mg/dL Creatinine (0.52-1.04) mg/dL Est GFR (CKD-EPI)AfAm (>60 ml/min/1.73 sqM) Est GFR (CKD-EPI)NonAf (>60 ml/min/1.73 sqM) Glucose (74-99) mg/dL Calcium (8.4-10.2) mg/dL Total Bilirubin (0.2-1.3) mg/dL AST (14-36) U/L ALT (4-34) U/L Alkaline Phosphatase (38-126) U/L Ammonia <9 (<30) umol/L Total Protein (6.3-8.2) g/dL Albumin (3.5-5.0) g/dL TSH (0.465-4.680) mIU/L Urine Color Urine Appearance (Clear) Urine pH (5.0-8.0) Ur Specific [place] (1.001-1.035) Urine Protein (Negative) Urine Glucose (UA) (Negative) Urine Ketones (Negative) Urine Blood (Negative) Urine Nitrite (Negative) Urine Bilirubin (Negative) Urine Urobilinogen (<2.0) mg/dL Ur Leukocyte Esterase (Negative) Urine RBC (0-5) /hpf Urine WBC (0-5) /hpf Ur Squamous Epith Cells (0-4) /hpf Urine Bacteria (None) /hpf Urine Mucus (None) /hpf Salicylates mg/dL Urine Opiates Screen (NotDetected) Ur Oxycodone Screen (NotDetected) Urine Methadone Screen (NotDetected) Ur Propoxyphene Screen (NotDetected) Acetaminophen ug/mL Ur Barbiturates Screen (NotDetected) U Tricyclic Antidepress (NotDetected) Ur Phencyclidine Scrn (NotDetected) Ur Amphetamines Screen (NotDetected) U Methamphetamines Scrn (NotDetected) U Benzodiazepines Scrn (NotDetected) Urine Cocaine Screen (NotDetected) U Marijuana (THC) Screen (NotDetected) Serum Alcohol mg/dL - EKG Data EKG Comments: EKG done at 1930 shows sinus rhythm with rate in 92. Normal intervals. Baseline artifact. Early repolarization noted. Normal axis. Disposition Clinical Impression: Psychosis, Depression Disposition: ADMITTED IP TO THIS HOSP Condition: Stable Time of Disposition: 22:00 Decision to Admit Reason: Admit from EC
[2022-01-28 19:16] LABS: ALT 22 U/L (4-34); AST 37 U/L (14-36); Acetaminophen <10.0 ug/mL; African American GFR (CKD) >90 (>60 ml/min/1.73 sqM); Albumin 4.1 g/dL (3.5-5.0); Alcohol <10 mg/dL; Alkaline Phosphatase 107 U/L (38-126); Anion Gap 8 mmol/L; Blood Urea Nitrogen 19 mg/dL (7-17); Calcium 9.5 mg/dL (8.4-10.2); Carbon Dioxide 26 mmol/L (22-30); Chloride 98 mmol/L (98-107); Glucose 104 mg/dL (74-99); Non-African American GFR(CKD) >90 (>60 ml/min/1.73 sqM); Potassium 3.9 mmol/L (3.5-5.1); Salicylate <1.0 mg/dL; Sodium 132 mmol/L (137-145); Total Bilirubin 1.5 mg/dL (0.2-1.3); Total Protein 6.9 g/dL (6.3-8.2)
[2022-01-28 19:21] LABS: Amphetamine Screen,Urine Not Detected (NotDetected); Barbiturate Screen,Urine Not Detected (NotDetected); Benzodiazepines Screen,Urine Not Detected (NotDetected); Cocaine Screen,Urine Not Detected (NotDetected); Methadone Screen, Urine Not Detected (NotDetected); Opiate Screen,Urine Not Detected (NotDetected); Oxycodone Screen, Urine Not Detected (NotDetected); Phencyclidine Screen,Urine Not Detected (NotDetected); Tricyclic Antidepressant,Urine Not Detected (NotDetected); Urn Cannabinoid Scrn Not Detected (NotDetected)
[2022-01-28 19:22] LABS: Appearance,Urine Clear (Clear); Bacteria,Urine Rare /hpf; Bilirubin,Urine Negative (Negative); Blood,Urine Negative (Negative); Color,Urine Yellow; Glucose,Urine (UA) Negative (Negative); Ketones,Urine Negative (Negative); Leukocyte Esterase,Urine Trace (Negative); Mucus,Urine Rare /hpf; Nitrite,Urine Negative (Negative); Protein,Urine Negative (Negative); RBC,Urine 2 /hpf (0-5); Specific Gravity,Urine 1.017 (1.001-1.035); Squamous Epithelial Cell,Urine 2 /hpf (0-4); Urobilinogen,Urine <2.0 mg/dL (<2.0); WBC,Urine 2 /hpf (0-5)
[2022-01-28 19:29] LABS: Basophils # (A) 0.1 k/uL (0-0.2); Basophils % (A) 1 %; Eosinophils # (A) 0.1 k/uL (0-0.7); Eosinophils % (A) 2 %; HCT 46.1 % (34.0-46.0); HGB 15.2 gm/dL (11.4-16.0); Lymphocytes % (A) 22 %; MCH 29.8 pg (25.0-35.0); MCHC 32.9 g/dL (31.0-37.0); MCV 90.3 fL (80.0-100.0); Mean Platelet Volume 6.8; Monocytes # (A) 0.4 k/uL (0-1.0); Monocytes % (A) 5 %; Neutrophils # (A) 6.4 k/uL (1.3-7.7); Neutrophils % (A) 70 %; Platelet Count 459 k/uL (150-450); RDW 13.6 % (11.5-15.5); WBC 9.3 k/uL (3.8-10.6)
[2022-01-29] MEDS ORDERED: MAGNESIUM HYDROXIDE 2,400 MG/10 ML CUP PO PRN (00:15)
[2022-01-29] MEDS ORDERED: HALOPERIDOL LACTATE 5 MG/ML 1 ML VIAL IM PRN (00:15)
[2022-01-29] MEDS ORDERED: ACETAMINOPHEN TAB 325 MG TAB PO PRN (00:15)
[2022-01-29] MEDS ORDERED: MAG HYDROX/AL HYDROX/SIMETH 30 ML CUP PO PRN (00:15)
[2022-01-29] MEDS ORDERED: haloperidoL 5 MG TAB PO PRN (00:19)
[2022-01-29] MEDS ORDERED: LORazepam 2 MG/ML INJ IM PRN (00:19)
--- NOTE | 2022-01-29 04:43 | P.CONS ---
History of Present Illness - Reason for Consult Consult date: 01/29/22 - History of Present Illness The patient is a 61-year-old female with a PMH of schizophrenia who had presented to the emergency room due for worsening depression and anxiety. The patient was admitted to the mental health unit when she was seen and evaluated. She reported having to the hospital due to her being homeless. She reports smoking 1 pack of cigarettes daily. Denied using alcohol or any illicit substances. Denied physical complaints at the time of interview. Denied chest discomfort, shortness of breath, fever, chills, cough, nausea, vomiting, abdominal pain, diarrhea. The patient reports that she has not been eating or drinking as much over the past few days she does not have the money for it. Laboratory evaluation was reviewed. Review of systems: Pertinent positives and negatives as discussed in HPI, a complete review of systems was performed and all other systems are negative. Physical examination: General: non toxic, no distress, appears at stated age, normal weight Derm: no unusual rashes/lesions no unusual ecchymoses, warm, dry Head: atraumatic, normocephalic, symmetric Eyes: EOMI, no lid lag, anicteric sclera, pupils equal round reactive to light ENT: Nose and ears atraumatic, no thrush, no pharyngeal erythema Neck: No thyromegaly, no cervical lymphadenopathy, trachea midline, supple Mouth: no lip lesion, mucus membranes moist Cardiovascular: S1S2 reg, no murmur, positive posterior tibial pulse bilateral, no edema, capillary refill less than 2 seconds Lungs: CTA bilateral, no rhonchi, no rales , no accessory muscle use Abdominal: soft, nontender to palpation, no guarding, no appreciable organomegaly, normal bowel sounds Ext: no gross muscle atrophy, muscle strength 5 out of 5 in all 4 extremities grossly, no contractures, Neuro: CN II-XI grossly intact, light touch intact all 4 extremities, finger to nose within normal limits, Psych: Alert, oriented, appropriate affect Assessment/plan Hyponatremia, likely secondary to poor oral intake -Similar to baseline Depression and anxiety -As per psychiatry Thank you for allowing us to participate in the care of this patient. We will follow peripherally. Do not hesitate to contact us with questions. Someone can be reached from the [facility] hospitalist group at all hours of the day at [phone]. Past Medical History Past Medical History: Unable to Obtain History of Any Multi-Drug Resistant Organisms: Unobtainable Past Surgical History: Unable to Obtain Smoking Status: Unknown if ever smoked Medications and Allergies Home Medications Medication Instructions Recorded Confirmed Type risperiDONE [RisperDAL] 1 mg PO DAILY 30 Days tab 08/27/21 Rx risperiDONE [RisperDAL] 2 mg PO HS 30 Days tab 08/27/21 Rx traZODone HCL [Desyrel] 50 mg PO HS 30 Days tab 08/27/21 Rx Allergies Allergy/AdvReac Type Severity Reaction Status Date / Time codeine Allergy Rash/Hives Verified 01/29/22 02:08 Physical Exam Vitals: Vital Signs Temp Pulse Pulse Resp BP BP Pulse Ox 01/29/22 01:52 97.8 F 95 18 111/64 95 01/29/22 01:00 98.3 F 91 16 95/65 97 01/28/22 20:40 97.8 F 90 14 101/69 96 01/28/22 17:18 97.3 F L 93 18 119/78 98 Intake and Output 01/28/22 01/28/22 01/29/22 14:59 22:59 06:59 Other: Weight 54.431 kg 49.8 kg Results CBC & Chem 7: 01/28/22 19:00 01/28/22 19:00 Labs: Abnormal Lab Results - Last 24 Hours (Table) 01/28/22 01/28/22 01/28/22 Range/Units 18:53 19:00 19:00 Hct 46.1 H (34.0-46.0) % Plt Count 459 H (150-450) k/uL Sodium 132 L (137-145) mmol/L BUN 19 H (7-17) mg/dL Glucose 104 H (74-99) mg/dL Total Bilirubin 1.5 H (0.2-1.3) mg/dL AST 37 H (14-36) U/L Ur Leukocyte Esterase Trace H (Negative) Urine Bacteria Rare H (None) /hpf Urine Mucus Rare H (None) /hpf
[2022-01-29 07:08] VITALS: RESP 16
[2022-01-29] MEDS ORDERED: ARIPiprazole 5 MG TAB PO STA (10:02)
--- NOTE | 2022-01-29 12:11 | P.HP ---
Psychiatric H&P - . H&P Date: 01/29/22 History & Physical: Allergies Allergy/AdvReac Type Severity Reaction Status Date / Time codeine Allergy Rash/Hives Verified 01/29/22 02:08 Vital Signs Temp 98.1 F 01/29/22 06:40 Pulse 108 H 01/29/22 06:40 Resp 16 01/29/22 06:40 BP 119/75 01/29/22 06:40 Pulse Ox 95 01/29/22 01:52 Intake & Output 01/28/22 01/29/22 01/29/22 18:59 06:59 18:59 Weight 54.431 kg 49.8 kg Laboratory Last Values WBC 9.3 k/uL (3.8-10.6) 01/28/22 19:00 RBC 5.10 m/uL (3.80-5.40) 01/28/22 19:00 Hgb 15.2 gm/dL (11.4-16.0) 01/28/22 19:00 Hct 46.1 % (34.0-46.0) H 01/28/22 19:00 MCV 90.3 fL (80.0-100.0) 01/28/22 19:00 MCH 29.8 pg (25.0-35.0) 01/28/22 19:00 MCHC 32.9 g/dL (31.0-37.0) 01/28/22 19:00 RDW 13.6 % (11.5-15.5) 01/28/22 19:00 Plt Count 459 k/uL (150-450) H 01/28/22 19:00 MPV 6.8 01/28/22 19:00 Neutrophils % 70 % 01/28/22 19:00 Lymphocytes % 22 % 01/28/22 19:00 Monocytes % 5 % 01/28/22 19:00 Eosinophils % 2 % 01/28/22 19:00 Basophils % 1 % 01/28/22 19:00 Neutrophils # 6.4 k/uL (1.3-7.7) 01/28/22 19:00 Lymphocytes # 2.0 k/uL (1.0-4.8) 01/28/22 19:00 Monocytes # 0.4 k/uL (0-1.0) 01/28/22 19:00 Eosinophils # 0.1 k/uL (0-0.7) 01/28/22 19:00 Basophils # 0.1 k/uL (0-0.2) 01/28/22 19:00 Sodium 132 mmol/L (137-145) L 01/28/22 19:00 Potassium 3.9 mmol/L (3.5-5.1) 01/28/22 19:00 Chloride 98 mmol/L (98-107) 01/28/22 19:00 Carbon Dioxide 26 mmol/L (22-30) 01/28/22 19:00 Anion Gap 8 mmol/L 01/28/22 19:00 BUN 19 mg/dL (7-17) H 01/28/22 19:00 Creatinine 0.65 mg/dL (0.52-1.04) 01/28/22 19:00 Est GFR (CKD-EPI)AfAm >90 (>60 ml/min/1.73 sqM) 01/28/22 19:00 Est GFR (CKD-EPI)NonAf >90 (>60 ml/min/1.73 sqM) 01/28/22 19:00 Glucose 104 mg/dL (74-99) H 01/28/22 19:00 Calcium 9.5 mg/dL (8.4-10.2) 01/28/22 19:00 Total Bilirubin 1.5 mg/dL (0.2-1.3) H 01/28/22 19:00 AST 37 U/L (14-36) H 01/28/22 19:00 ALT 22 U/L (4-34) 01/28/22 19:00 Alkaline Phosphatase 107 U/L (38-126) 01/28/22 19:00 Ammonia <9 umol/L (<30) 01/28/22 19:00 Total Protein 6.9 g/dL (6.3-8.2) 01/28/22 19:00 Albumin 4.1 g/dL (3.5-5.0) 01/28/22 19:00 TSH 1.760 mIU/L (0.465-4.680) 01/28/22 19:00 Urine Color Yellow 01/28/22 18:53 Urine Appearance Clear (Clear) 01/28/22 18:53 Urine pH 6.0 (5.0-8.0) 01/28/22 18:53 Ur Specific [place] 1.017 (1.001-1.035) 01/28/22 18:53 Urine Protein Negative (Negative) 01/28/22 18:53 Urine Glucose (UA) Negative (Negative) 01/28/22 18:53 Urine Ketones Negative (Negative) 01/28/22 18:53 Urine Blood Negative (Negative) 01/28/22 18:53 Urine Nitrite Negative (Negative) 01/28/22 18:53 Urine Bilirubin Negative (Negative) 01/28/22 18:53 Urine Urobilinogen <2.0 mg/dL (<2.0) 01/28/22 18:53 Ur Leukocyte Esterase Trace (Negative) H 01/28/22 18:53 Urine RBC 2 /hpf (0-5) 01/28/22 18:53 Urine WBC 2 /hpf (0-5) 01/28/22 18:53 Ur Squamous Epith Cells 2 /hpf (0-4) 01/28/22 18:53 Urine Bacteria Rare /hpf (None) H 01/28/22 18:53 Urine Mucus Rare /hpf (None) H 01/28/22 18:53 Salicylates <1.0 mg/dL 01/28/22 19:00 Urine Opiates Screen Not Detected (NotDetected) 01/28/22 18:53 Ur Oxycodone Screen Not Detected (NotDetected) 01/28/22 18:53 Urine Methadone Screen Not Detected (NotDetected) 01/28/22 18:53 Ur Propoxyphene Screen Not Detected (NotDetected) 01/28/22 18:53 Acetaminophen <10.0 ug/mL 01/28/22 19:00 Ur Barbiturates Screen Not Detected (NotDetected) 01/28/22 18:53 U Tricyclic Antidepress Not Detected (NotDetected) 01/28/22 18:53 Ur Phencyclidine Scrn Not Detected (NotDetected) 01/28/22 18:53 Ur Amphetamines Screen Not Detected (NotDetected) 01/28/22 18:53 U Methamphetamines Scrn Not Detected (NotDetected) 01/28/22 18:53 U Benzodiazepines Scrn Not Detected (NotDetected) 01/28/22 18:53 Urine Cocaine Screen Not Detected (NotDetected) 01/28/22 18:53 U Marijuana (THC) Screen Not Detected (NotDetected) 01/28/22 18:53 Serum Alcohol <10 mg/dL 01/28/22 19:00 Coronavirus (PCR) Not Detected (Not Detectd) 01/28/22 23:29 01/29/22 12:10 IDENTIFYING DATA: Patient is a 61-year-old female with significant history of brief psychotic disorder and cannabis use disorder, who presents to the hospital for suicidal ideation in the context of recent homelessness. HPI: Patient presented to the hospital on 01/28/2022, brought in on her own for suicidal ideation in the context of recent homelessness. The patient reports that she was living with her boyfriend Simeon, however they were informed that the home is in [facility] by the end of this month. She reports she went from home straight to the emergency department. The patient has been nonadherent with her psychiatric treatment over the past 3 months. She was last evaluated by [facility] on 11/25/2021. Patient reports that she has been feeling increasingly depressed over the past few months. She reports that she has been feeling hopeless, helpless, and has had a significant decrease in appetite. She reports that she has lost 50 pounds over the past few months. She reports decreased appetite. The patient admits to suicidal ideation however she denies any homicidal ideation, intention, and/or plan. She denies any significant history of bipolar disorder. She reports no history of manic episodes. The patient denies any auditory or visual hallucinations. She denies any paranoia or other delusions. Patient however appears to be very fixated on the well-being of her 8 cats. She states that she is concerned that she left them alone and is worried about their future. In regards to substance use, the patient denies any tobacco or marijuana use. She reports that she quit tobacco in October and marijuana in November. She reports no alcohol or illicit drug use. PAST PSYCHIATRIC HISTORY: Patient was previously diagnosed with brief psychotic episode in August 2021. During that admission, the patient was discharged on a regimen of Risperdal and trazodone. She is currently open with [facility] are canceled multiple appointments her last appointment in November 2021. She reports no prior suicide attempts in the past. PMH: Past Medical History: Unable to Obtain History of Any Multi-Drug Resistant Organisms: Unobtainable Past Surgical History: Unable to Obtain Past Psychological History: Unable to Obtain Smoking Status: Unknown if ever smoked Past Alcohol Use History: Unable to Obtain Past Drug Use History: Unable to Obtain ALLERGIES: Codeine CHEMICAL DEPENDENCY HISTORY: Patient denies any tobacco, alcohol, marijuana, or illicit drug use. FAMILY PSYCHIATRIC/SUBSTANCE USE HISTORY: Patient reports no significant family history of substance abuse. SOCIAL HISTORY: Patient was born and raised in [place] in [place]. She is single, never , and has no children. She reports that she currently has no source of income. She reports that she has 3 siblings. Both of her parents are . She was previously employed at [employer] however is currently unemployed. MENTAL STATUS EXAM: General Appearance: Patient appears to be stated age is alert, directable, and attempts to cooperate. Patient appears to have disheveled hygiene and grooming. Patient displays a very thin body habitus. Behavior: Patient is seated without any agitated behavior. Speech: Patient's speech is fluent and nonpressured. Mood/Affect: Patient reports their mood is depressed, affect is congruent and flat. Suicidality/Homicidality: Patient denies having any homicidal ideation intent or plan. But endorses suicidal ideation. Perceptions: Patient denies any visual hallucinations and denies any auditory hallucinations Though content/process: There is no evidence of any delusional thought content and thought process is fixated on the well-being of her cats. Memory and concentration: AOX3, grossly intact for the purposes of this session. Can spell "WORLD" backwards Judgment and insight: poor STRENGTHS/WEAKNESSES: Unable to identify patient's strengths at this time. Weakness is that the patient is currently homeless and has been nonadherent with treatment. INTELLECT: Below average to average IMPRESSIONS: Major depressive disorder, recurrent, severe Rule out toxoplasmosis PLAN: -Patient is admitted under deferral status to [facility] for stabilization of psychiatric symptoms and safety. Patient signed adult voluntary form and medication consent and is placed in patient's chart. -Medications : Will start patient on Abilify 5 mg by mouth daily for mood augmentation/psychosis Remeron 15 mg by mouth at bedtime for depression/appetite stimulation -Ativan and Haldol PRN for agitation/aggression -Started multivitamin -Ordered B12 and folate -Patient was informed of the risks, benefits and side effects of the medication and patient verbally consented to taking the medications. Patient signed med consent form and was placed in chart. -Internal Medicine consult to perform medical evaluation and physical. -SW on board for discharge planning. Encourage patient to participate in groups to work on coping skills. 01/29/22 12:11
[2022-01-29 14:23] VITALS: BMI 18.8
[2022-01-29] MEDS ORDERED: MIRTAZAPINE 15 MG TAB PO SCH (21:00)
[2022-01-30] MEDS: LORazepam 1 MG TAB PO PRN (01:25)
[2022-01-30] MEDS ORDERED: ARIPiprazole 5 MG TAB PO SCH (09:00)
[2022-01-30] MEDS: MULTIVITAMINS, THERA 1 EACH TAB PO SCH (09:19)
--- NOTE | 2022-01-30 12:22 | P.PN ---
Progress Note - Text Progress Note Date: 01/30/22 Interval History: Patient was seen attending group and was directable and agreeable to speak with underwriter in the office. Currently, the patient reports that she is feeling slightly better. She is currently reporting some suicidal ideation but states that it has decreased. She is currently not reporting any homicidal ideation. She denies any auditory or visual hallucinations. She reports no paranoia or other delusions. The patient does report that she continues to have difficulty with sleep. She does report that her appetite has improved. She has been adherent with her medications and is not reporting any significant side effects at this time. Mental Status Exam: General Appearance: Patient appears to be stated age is alert, directable, and cooperative. Thin and frail. Behavior: Patient is calmly seated without any agitated behavior. Eye contact is appropriate. Speech: Patient's speech is fluent and nonpressured. Mood/Affect: Mood is improving mildly, affect is congruent and blunted. Suicidality/Homicidality: Patient denies having any suicidal or homicidal ideation intent or plan. Perceptions: Patient denies any visual hallucinations and denies any auditory hallucinations Though content/process: There is no evidence of any delusional thought content and thought process is linear and goal-directed. Memory and concentration: AOX3, grossly intact for the purposes of this session Judgment and insight: Improving mildly Vital Signs Temp 97.8 F 01/30/22 06:53 Pulse 90 01/30/22 06:53 Resp 16 01/30/22 06:53 BP 99/54 01/30/22 06:53 Pulse Ox 98 01/30/22 06:53 Intake & Output 01/29/22 01/30/22 01/30/22 18:59 06:59 18:59 Weight 49.8 kg Laboratory Results - Last 24 Hours 01/28/22 01/28/22 01/28/22 19:00 19:00 19:[address] Glu mg/dL 117 Hemoglobin A1c 5.7 Vitamin B12 704.0 Folate 4.40 Assessment Major depressive disorder, recurrent, severe Plan: -Patient continues to meet criteria for inpatient psychiatric admission for symptom stabilization and safety. Patient has signed adult voluntary form and medication consent and was placed in patient's chart. -Medications: Increase Abilify to 10 mg by mouth every morning for mood stabilization/psychosis Increase Remeron to 30 mg daily at bedtime for depression/insomnia/appetite stimulation -When necessary Ativan and Haldol for agitation/aggression. -SW on board for discharge planning. Encouraged the patient to participate in milieu.
[2022-01-30 14:44] LABS: Chol/HDL Ratio 2.39 Ratio; LDL Cholesterol,Calculated 66.2 mg/dL (0.0-131.0)
[2022-01-30] MEDS: MIRTAZAPINE 15 MG TAB PO SCH (22:10)
[2022-01-31] MEDS: MULTIVITAMINS, THERA 1 EACH TAB PO SCH (08:49)
[2022-01-31] MEDS ORDERED: ARIPiprazole 10 MG TAB PO SCH (09:00)
--- NOTE | 2022-01-31 12:38 | P.PN ---
Progress Note - Text Progress Note Date: 01/31/22 Interval History: Patient was seen attending group and was directable and agreeable to speak with magazine writer in the office. The patient admits that she is feeling elevated anxiety today. She is currently not reporting any suicidal or homicidal ideation, intention, and/or plan. She expresses hopelessness and concerns for her future. She expresses that she is concerned about being homeless. She has otherwise been in adherent with her medications and is not reporting any significant side effects. Mental Status Exam: General Appearance: Patient appears to be stated age is alert, directable, and cooperative. Thin and frail. Behavior: Patient is calmly seated without any agitated behavior. Eye contact is appropriate. Speech: Patient's speech is fluent and nonpressured. Mood/Affect: Mood is improving mildly, affect is congruent and blunted. Suicidality/Homicidality: Patient denies having any suicidal or homicidal ideation intent or plan. Perceptions: Patient denies any visual hallucinations and denies any auditory hallucinations Though content/process: There is no evidence of any delusional thought content and thought process is linear and goal-directed. Memory and concentration: AOX3, grossly intact for the purposes of this session Judgment and insight: Improving mildly Vital Signs Temp 98 F 01/31/22 06:47 Pulse 98 01/31/22 06:47 Resp 16 01/31/22 06:47 BP 114/74 01/31/22 06:47 Pulse Ox 97 01/31/22 06:47 Assessment Major depressive disorder, recurrent, severe Plan: -Patient continues to meet criteria for inpatient psychiatric admission for symptom stabilization and safety. Patient has signed adult voluntary form and medication consent and was placed in patient's chart. Patient waived and stipulated court. As per [facility], patient can return back to the home with her boyfriend. -Medications: Increase Abilify to 15 mg by mouth every morning for mood stabilization/psychosis. We will titrate this medication to 20 mg over the weekend. If the medication is well tolerated, please order and administer Abilify maintena 300 mg IM on Thursday02/02/2022 in preparation for discharge Thursday. Continue Remeron 30 mg daily at bedtime for depression/insomnia/appetite stimulation -When necessary Ativan and Haldol for agitation/aggression. -SW on board for discharge planning. Encouraged the patient to participate in milieu.
[2022-01-31] MEDS: MIRTAZAPINE 15 MG TAB PO SCH (21:22)
[2022-01-31] MEDS: LORazepam 1 MG TAB PO PRN (21:23)
[2022-02-01] MEDS ORDERED: ARIPiprazole 5 MG TAB PO SCH (09:00)
[2022-02-01] MEDS: MULTIVITAMINS, THERA 1 EACH TAB PO SCH (09:04)
[2022-02-01] MEDS: MIRTAZAPINE 15 MG TAB PO SCH (21:46)
--- NOTE | 2022-02-01 22:10 | P.PN ---
Progress Note - Text Progress Note Date: 02/01/22 Patient is a 61-year-old female with history of brief psychotic disorder, treatment non compliance, and cannabis use disorder, admitted to [facility] due to suicidal ideation in the context of recent homelessness. Patient states she has no where to go and reports feeling very depressed about her situation. She is complaint with medications. No side effects reported. She reports good sleep and appetite. Mental Status Exam: General Appearance: Patient appears to be stated age thin, frail is alert, directable, and cooperative. Behavior: Patient is calmly seated without any agitated behavior. Eye contact is appropriate. Speech: Patient's speech is fluent and nonpressured. Mood/Affect: Mood is depressed affect is congruent and blunted. Suicidality/Homicidality: Patient denies having any suicidal or homicidal ideation intent or plan. Perceptions: Patient denies any visual hallucinations and denies any auditory hallucinations Though content/process: There is no evidence of any delusional thought content and thought process is linear and goal-directed. Memory and concentration: AOX3, grossly intact for the purposes of this session Judgment and insight: Improving mildly PLAN: -Patient is admitted under deferral status to [facility] for stabilization of psychiatric symptoms and safety. Patient signed adult voluntary form and medication consent and is placed in patient's chart. -Medications : continue Abilify 5 mg by mouth daily for mood augmentation/psychosis Remeron 15 mg by mouth at bedtime for depression/appetite stimulation -Ativan and Haldol PRN for agitation/aggression -Continue multivitamin, B12 and folate -Patient was informed of the risks, benefits and side effects of the medication and patient verbally consented to taking the medications. Patient signed med consent form and was placed in chart. -SW on board for discharge planning. Encourage patient to participate in groups to work on coping skills.
[2022-02-02 06:57] VITALS: BP 120/73; PULSE 101; TEMP 97.9
[2022-02-02] MEDS: MULTIVITAMINS, THERA 1 EACH TAB PO SCH (08:05)
--- NOTE | 2022-02-02 17:32 | P.PN ---
Progress Note - Text Progress Note Date: 02/02/22 Patient is a 61-year-old female with history of brief psychotic disorder, treatment non compliance, and cannabis use disorder, admitted to [facility] due to suicidal ideation in the context of recent homelessness. Patient states she very worried about not having a place to live. She is preoccupied about having no where to go. Though she is complaint with medications she is not sure if they are helping her or not. No side effects reported. She reports good sleep and appetite. Mental Status Exam: General Appearance: Patient appears to be stated age thin, frail is alert, directable, Eye contact is appropriate. Behavior: Patient is worried about not having a place to live and questions repeqtedly are you discharging me today. Speech: Patient's speech is fluent and nonpressured. Mood/Affect: Mood is anxious affect is congruent Suicidality/Homicidality: Patient denies having any suicidal or homicidal ideation intent or plan. Perceptions: Patient denies any visual hallucinations and denies any auditory hallucinations Though content/process: There is no evidence of any delusional thought content and thought process is linear and goal-directed. Memory and concentration: AOX3, grossly intact for the purposes of this session Judgment and insight: Improving mildly PLAN: -Patient is admitted under deferral status to [facility] for stabilization of psychiatric symptoms and safety. Patient signed adult voluntary form and medication consent and is placed in patient's chart. -Medications : continue Abilify 5 mg by mouth daily for mood augmentation/psychosis Remeron 15 mg by mouth at bedtime for depression/appetite stimulation -Ativan and Haldol PRN for agitation/aggression -Continue multivitamin, B12 and folate -Patient was informed of the risks, benefits and side effects of the medication and patient verbally consented to taking the medications. Patient signed med consent form and was placed in chart. -SW on board for discharge planning. Encourage patient to participate in groups to work on coping skills.
[2022-02-02] MEDS: MIRTAZAPINE 15 MG TAB PO SCH (21:02)
[2022-02-03] MEDS: LORazepam 1 MG TAB PO PRN (03:30)
[2022-02-03] MEDS: MULTIVITAMINS, THERA 1 EACH TAB PO SCH (09:01)
--- NOTE | 2022-02-03 14:15 | P.DS ---
Providers Date of admission: 01/29/22 00:00 Expected date of discharge: 02/03/22 Attending physician: Mayank King MD Consults: 01/29/22 00:15 Consult Physician Routine Consulting Provider: Eliseo Pena Consult Reason/Comments: H&P and medical Do you want consulting provider notified?: Yes Primary care physician: Stated None - Discharge Diagnosis(es) (1) Major depressive disorder, recurrent, severe with psychotic symptoms Status: Acute Priority: High Hospital Course: Admission HPI: Patient is a 61-year-old female with significant history of brief psychotic disorder and cannabis use disorder, who presents to the hospital for suicidal ideation in the context of recent homelessness. Patient presented to the hospital on 01/28/2022, brought in on her own for suicidal ideation in the context of recent homelessness. The patient reports that she was living with her boyfriend Simeon, however they were informed that the home is in health system by the end of this month. She reports she went from home straight to the emergency department. The patient has been nonadherent with her psychiatric treatment over the past 3 months. She was last evaluated by [facility] on 11/25/2021. Patient reports that she has been feeling increasingly depressed over the past few months. She reports that she has been feeling hopeless, helpless, and has had a significant decrease in appetite. She reports that she has lost 50 pounds over the past few months. She reports decreased appetite. The patient admits to suicidal ideation however she denies any homicidal ideation, intention, and/or plan. She denies any significant history of bipolar disorder. She reports no history of manic episodes. The patient denies any auditory or visual hallucinations. She denies any paranoia or other delusions. Patient however appears to be very fixated on the well-being of her 8 cats. She states that she is concerned that she left them alone and is worried about their future. In regards to substance use, the patient denies any tobacco or marijuana use. She reports that she quit tobacco in October and marijuana in November. She reports no alcohol or illicit drug use. Patient was previously diagnosed with brief psychotic episode in August 2021. During that admission, the patient was discharged on a regimen of Risperdal and trazodone. She is currently open with [facility] are canceled multiple appointments her last appointment in November 2021. She reports no prior suicide attempts in the past. Hospital course: Upon admission to the unit patient was initially endorsing significant symptoms of depression including decreased appetite, unintentional weight loss, feelings of hopelessness and suicidal ideation. Patient was however directable and agreeable to commence treatment. Patient got along well with other patients on the unit and followed unit protocol. Patient was compliant with the medications and denied any side effects throughout hospital course. Patient was started on Remeron and Abilify for management of depression, appetite stimulation, and pos sible psychosis. Patient spoke of her stressors and engaged in therapy both group and individual. Patient was also seen by medical team for history and physical exam. The primary concern for the patient was her homelessness. She displayed significant improvement in regards to her depressive symptoms and began eating and sleeping with regularity. The patient also had significant improvement in her target symptoms of suicidal ideation and displayed a significant improvement in mood. The patient expressed that her biggest concern was her homelessness and was concerned about discharge because she was scared to be homeless. It was found out and determined however that she would be able to return to her boyfriend's place as they were not evicted. On the day of discharge, the patient is not reporting any suicidal or homicidal ideation, intention, and/or plan. She is not reporting any auditory or visual hallucinations. She is denying any paranoia or other delusions. The patient does express concern for her cats at her old home. Otherwise she is not presenting with any other significant concerns. The patient has been in adherent with her medications and is not reporting any significant side effects. The patient was counseled at length on the points of medication adherence and appropriate outpatient follow-up. Furthermore, the patient denies any access to firearms or other weapons. The patient was counseled on importance of abstaining from all substances including alcohol and marijuana. She is informed to follow-up with her outpatient appointments for primary care as well. Prior to discharge, family meeting will be arranged by social science professor to answer any questions and ensure safety. Mental status exam: General Appearance: Patient appears to be stated age is alert, pleasant, and cooperative. Patient is in no acute distress and has fair hygiene and grooming Behavior: Patient is calmly seated without any agitated behavior. Speech: Patient's speech is fluent and nonpressured. Mood/Affect: Patient reports their mood is "feeling okay", affect is congruent and euthymic but nervous. Suicidality/Homicidality: Patient denies having any suicidal or homicidal i deation intent or plan. Perceptions: Patient denies any auditory or visual hallucinations. Though content/process: There is no evidence of any delusional thought content and thought process is linear and goal-directed. Patient appears to be future oriented. Memory and concentration: AOX3, grossly intact for the purposes of this session. Can spell "WORLD" backwards correctly. Judgment and insight: Improved with guarded prognosis Vital Signs Temp 97.9 F 02/02/22 06:56 Pulse 101 H 02/02/22 06:56 Resp 16 02/02/22 06:56 BP 120/73 02/02/22 06:56 Pulse Ox 98 02/02/22 06:56 Intake & Output 02/02/22 02/03/22 02/03/22 18:59 06:59 18:59 Weight 49.3 kg Laboratory Results WBC 9.3 k/uL (3.8-10.6) 01/28/22 19:00 RBC 5.10 m/uL (3.80-5.40) 01/28/22 19:00 Hgb 15.2 gm/dL (11.4-16.0) 01/28/22 19:00 Hct 46.1 % (34.0-46.0) H 01/28/22 19:00 MCV 90.3 fL (80.0-100.0) 01/28/22 19:00 MCH 29.8 pg (25.0-35.0) 01/28/22 19:00 MCHC 32.9 g/dL (31.0-37.0) 01/28/22 19:00 RDW 13.6 % (11.5-15.5) 01/28/22 19:00 Plt Count 459 k/uL (150-450) H 01/28/22 19:00 MPV 6.8 01/28/22 19:00 Neutrophils % 70 % 01/28/22 19:00 Lymphocytes % 22 % 01/28/22 19:00 Monocytes % 5 % 01/28/22 19:00 Eosinophils % 2 % 01/28/22 19:00 Basophils % 1 % 01/28/22 19:00 Neutrophils # 6.4 k/uL (1.3-7.7) 01/28/22 19:00 Lymphocytes # 2.0 k/uL (1.0-4.8) 01/28/22 19:00 Monocytes # 0.4 k/uL (0-1.0) 01/28/22 19:00 Eosinophils # 0.1 k/uL (0-0.7) 01/28/22 19:00 Basophils # 0.1 k/uL (0-0.2) 01/28/22 19:00 Sodium 132 mmol/L (137-145) L 01/28/22 19:00 Potassium 3.9 mmol/L (3.5-5.1) 01/28/22 19:00 Chloride 98 mmol/L (98-107) 01/28/22 19:00 Carbon Dioxide 26 mmol/L (22-30) 01/28/22 19:00 Anion Gap 8 mmol/L 01/28/22 19:00 BUN 19 mg/dL (7-17) H 01/28/22 19:00 Creatinine 0.65 mg/dL (0.52-1.04) 01/28/22 19:00 Est GFR (CKD-EPI)AfAm >90 (>60 ml/min/1.73 sqM) 01/28/22 19:00 Est GFR (CKD-EPI)NonAf >90 (>60 ml/min/1.73 sqM) 01/28/22 19:00 Glucose 104 mg/dL (74-99) H 01/28/22 19:[address] Glu mg/dL 117 01/28/22 19:00 Hemoglobin A1c 5.7 % (0.0-6.0) 01/28/22 19:00 Calcium 9.5 mg/dL (8.4-10.2) 01/28/22 19:00 Total Bilirubin 1.5 mg/dL (0.2-1.3) H 01/28/22 19:00 AST 37 U/L (14-36) H 01/28/22 19:00 ALT 22 U/L (4-34) 01/28/22 19:00 Alkaline Phosphatase 107 U/L (38-126) 01/28/22 19:00 Ammonia <9 umol/L (<30) 01/28/22 19:00 Total Protein 6.9 g/dL (6.3-8.2) 01/28/22 19:00 Albumin 4.1 g/dL (3.5-5.0) 01/28/22 19:00 Triglycerides 102.00 mg/dL (0.00-149.00) 01/28/22 19:00 Cholesterol 149.00 mg/dL (0.00-200.00) 01/28/22 19:00 LDL Cholesterol, Calc 66.2 mg/dL (0.0-131.0) 01/28/22 19:00 VLDL Cholesterol, Calc 20.40 mg/dL (5.00-40.00) 01/28/22 19:00 HDL Cholesterol 62.40 mg/dL (40.00-60.00) H 01/28/22 19:00 Cholesterol/HDL Ratio 2.39 Ratio 01/28/22 19:00 Vitamin B12 704.0 pg/mL (200.0-944.0) 01/28/22 19:00 Folate 4.40 ng/mL (4.40-31.00) 01/28/22 19:00 TSH 1.760 mIU/L (0.465-4.680) 01/28/22 19:00 Urine Color Yellow 01/28/22 18:53 Urine Appearance Clear (Clear) 01/28/22 18:53 Urine pH 6.0 (5.0-8.0) 01/28/22 18:53 Ur Specific [place] 1.017 (1.001-1.035) 01/28/22 18:53 Urine Protein Negative (Negative) 01/28/22 18:53 Urine Glucose (UA) Negative (Negative) 01/28/22 18:53 Urine Ketones Negative (Negative) 01/28/22 18:53 Urine Blood Negative (Negative) 01/28/22 18:53 Urine Nitrite Negative (Negative) 01/28/22 18:53 Urine Bilirubin Negative (Negative) 01/28/22 18:53 Urine Urobilinogen <2.0 mg/dL (<2.0) 01/28/22 18:53 Ur Leukocyte Esterase Trace (Negative) H 01/28/22 18:53 Urine RBC 2 /hpf (0-5) 01/28/22 18:53 Urine WBC 2 /hpf (0-5) 01/28/22 18:53 Ur Squamous Epith Cells 2 /hpf (0-4) 01/28/22 18:53 Urine Bacteria Rare /hpf (None) H 01/28/22 18:53 Urine Mucus Rare /hpf (None) H 01/28/22 18:53 Salicylates <1.0 mg/dL 01/28/22 19:00 Urine Opiates Screen Not Detected (NotDetected) 01/28/22 18:53 Ur Oxycodone Screen Not Detected (NotDetected) 01/28/22 18:53 Urine Methadone Screen Not Detected (NotDetected) 01/28/22 18:53 Ur Propoxyphene Screen Not Detected (NotDetected) 01/28/22 18:53 Acetaminophen <10.0 ug/mL 01/28/22 19:00 Ur Barbiturates Screen Not Detected (NotDetected) 01/28/22 18:53 U Tricyclic Antidepress Not Detected (NotDetected) 01/28/22 18:53 Ur Phencyclidine Scrn Not Detected (NotDetected) 01/28/22 18:53 Ur Amphetamines Screen Not Detected (NotDetected) 01/28/22 18:53 U Methamphetamines Scrn Not Detected (NotDetected) 01/28/22 18:53 U Benzodiazepines Scrn Not Detected (NotDetected) 01/28/22 18:53 Urine Cocaine Screen Not Detected (NotDetected) 01/28/22 18:53 U Marijuana (THC) Screen Not Detected (NotDetected) 01/28/22 18:53 Serum Alcohol <10 mg/dL 01/28/22 19:00 Coronavirus (PCR) Not Detected (Not Detectd) 01/28/22 23:29 Impression: Major depressive disorder, recurrent, severe -The patient was not tested for toxoplasmosis but there is a strong likelihood that the patient has toxoplasmosis as made evident by her decreased willingness to care for self and her increased worry and care for her cats. Despite if tested for toxoplasmosis, the patient's management and psychiatric care would not differ. We recommend continued outpatient psychiatric and primary care follow-up for this patient. Plan: -Continue with discharge today as patient has improved and stabilized psychiatrically and is not currently an imminent threat to herself and/or others. The patient's big risk factors include instability of housing and likely infection with toxoplasmosis. -Continue medications: Multivitamin Remeron 30 mg daily at bedtime for depression/appetite simulation Abilify 20 mg by mouth daily for mood augmentation/psychosis -Patient was counseled on the need for medication compliance and appropriate follow-up at mental health and also primary care for medical issues. Patient verbalized understanding and agreed. -Social work to arrange for and conduct family meeting to ensure safety upon discharge and answer any questions/concerns. Social work also to arrange for patients follow up appointments with [facility] for psychiatric care along with follow up with primary care provider. -Patient counseled on abstaining from recreational drugs and marijuana and alcohol. Was informed/educated on the adverse effects on their physical and mental health. Patient verbally agreed and understood. -Patient was instructed to return to the hospital or seek immediate medical care if their psychiatric or medical symptoms do worsen or reoccur. -Psychoeducation and supportive therapy provided to patient. Risks and benefits of pharmacological treatment versus the risks and benefits of nontreatment weight and discussed. Informed consent discussion held. Common side effects of psychotropics discussed such as, but not limited to headache, GI disturbance, sexual dysfunction, movement disorders, sedation, and orthostatic hypotension. Life threatening and blackbox warnings of prescribed medications also discussed. Potential risks of operating a vehicle or heavy machinery discussed with patient at length. Advised on importance of compliance and a reliable and responsible manner. Patient advised to review FDA consumer labeling of all medications prior to taking. Patient verbalized understanding of potential risks, and agrees with current treatment plan. Patient advised to medically contact physician/emergency personnel if any acute changes in condition occur. Allergies Allergy/AdvReac Type Severity Reaction Status Date / Time codeine Allergy Rash/Hives Verified 01/29/22 02:08 Patient Condition at Discharge: Stable Plan - Discharge Summary New Discharge Prescriptions: New Multivitamins, Thera [Multivitamin (formulary)] 1 each PO DAILY 30 Days tab Mirtazapine [Remeron] 30 mg PO HS 30 Days tab ARIPiprazole [Abilify] 20 mg PO DAILY 30 Days tab Discontinued traZODone HCL [Desyrel] 50 mg PO HS 30 Days tab risperiDONE [RisperDAL] 2 mg PO HS 30 Days tab risperiDONE [RisperDAL] 1 mg PO DAILY 30 Days tab Discharge Medication List ARIPiprazole [Abilify] 20 mg PO DAILY 30 Days tab 04/04/22 [Rx] Mirtazapine [Remeron] 30 mg PO HS 30 Days tab 02/03/22 [Rx] Multivitamins, Thera [Multivitamin (formulary)] 1 each PO DAILY 30 Days tab 02/03/22 [Rx] Follow up Appointment(s)/Referral(s): [facility] [Outside] - 02/10/22 9:00 am (Carla 02/10 @ 09:00 ) [facility] [NON-STAFF] - 1 Week Activity/Diet/Wound Care/Special Instructions: Activity and diet as tolerated. Avoid the use of street drugs and alcohol. Take all medications as prescribed. When you are in need of refills on your medications please contact your medical provider and/or outpatient psychiatrist to have this done. Please go to scheduled outpatient appointment for aftercare treatment. If symptoms return or become worse, call the crisis line at and/or go to the nearest emergency room for evaluation Discharge Disposition: HOME SELF-CARE
== END 2022-02-03 13:15 | disposition home or self-care (01) | DRG 885 ==
LOC: EC 16:06 → 3MHU 01-29
PROVIDERS: ADMIT Psychiatry & Neurology Psychiatry; ATTEND Psychiatry & Neurology Psychiatry
DX: F33.3 Major depressive disorder, recurrent, severe with psychotic symptoms (principal); E87.1 Hypo-osmolality and hyponatremia; R45.851 Suicidal ideations; F20.9 Schizophrenia, unspecified; Z20.822 Contact with and (suspected) exposure to COVID-19; F41.9 Anxiety disorder, unspecified; Z59.00 Homelessness unspecified; Z79.899 Other long term (current) drug therapy; Z91.19 Patient's noncompliance with other medical treatment and regimen; Z87.891 Personal history of nicotine dependence
CPT/HCPCS: 36415; 80053; 80061; 80143; 80179; 80306; 80320; 81001; 82075; 82140; 82607; 82746; 83036; 84443; 85025; 87635; 93005; 99285

== ENCOUNTER → 2022-07-24 | Outpatient (CLI) | payer OTHER ==
--- NOTE | 2022-07-24 13:33 | CT ---
EXAMINATION TYPE: CT angio head CT DLP: 1202.9 mGycm, Automated exposure control for dose reduction was used. DATE OF EXAM: 07/24/2022 1:02 PM COMPARISON: None. 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 Axial images are supplemented with 3D reconstru ctions which were post-processed at an independent workstation. NASCET criteria used. FINDINGS: Aneurysm repair changes are present in the anterior circulation near the bifurcation of the ELI and a nterior communicating artery. Exact location is slightly difficult to visualize due to streak beam padron rdening artifact. The visualized portions of the internal carotid arteries, middle cerebral arteries, anterior cerebral arteries, and posterior cerebral arteries are patent. The basilar and vertebral ar teries are patent. No evidence of acute intracranial hemorrhage, mass effect, or midline shift. The ventricles, sulci, and cisterns are unremarkable. Mild atherosclerosis changes of the intracranial ca rotid arteries. Mild mucosal thickening of the paranasal sinuses. IMPRESSION: Post aneurysm repair which limits evaluation in this area because of streak artifact .No new high gra de stenosis or intracranial aneurysm.
== END | disposition home or self-care (01) ==
LOC: RADCTMAIN 11:47
PROVIDERS: ATTEND Psychiatry & Neurology Neurology
DX: I67.1 Cerebral aneurysm, nonruptured (principal)
CPT/HCPCS: 70496; Q9967